=== PATIENT | female | born 1935 | race Caucasian/White ===

== ENCOUNTER → 2017-03-15 | Outpatient (CLI) | payer MEDICARE, BC | END | disposition home or self-care (01) | LOC: PCVCCLINIC 10:45 | PROVIDERS: ATTEND Internal Medicine Cardiovascular Disease | DX: I10 Essential (primary) hypertension (principal); I47.1 Supraventricular tachycardia; I48.0 Paroxysmal atrial fibrillation; E78.00 Pure hypercholesterolemia, unspecified; Z82.49 Family history of ischemic heart disease and other diseases of the circulatory system; Z87.891 Personal history of nicotine dependence; Z79.82 Long term (current) use of aspirin; Z79.899 Other long term (current) drug therapy | CPT/HCPCS: 80061; 93005; G0463 ==

== ENCOUNTER → 2018-03-14 | Outpatient (CLI) | payer MEDICARE, BC | END | disposition home or self-care (01) | LOC: PCVCCLINIC 10:53 | PROVIDERS: ATTEND Internal Medicine Cardiovascular Disease | DX: I48.0 Paroxysmal atrial fibrillation (principal); R00.0 Tachycardia, unspecified; E78.00 Pure hypercholesterolemia, unspecified; I10 Essential (primary) hypertension; Z87.891 Personal history of nicotine dependence | CPT/HCPCS: 36415; 80061; 93005; G0463 ==

== ENCOUNTER → 2018-03-28 | Outpatient (CLI) | payer BC, MEDICARE, OTHER ==
[~2018-03-28] MED LIST: REGADENOSON 0.4 MG/5 ML DISP.SYRIN. IV ONE
--- NOTE | 2018-03-28 14:54 | PCVCIMAG ---
APPROVED REPORT Imaging Protocol: Rest Tc-99m/Stress Tc-99m 1 day Study performed: 03/28/2018 12:14:07 Indication: Afib Patient Location: Out-Patient Stress Nurse: Sonam Vera RN, RIP Chatterjee Tech:Desmond MirandaCIELO Ht: 5 ft 3 in Wt: 140 lbs BSA: 1.66 m2 HR: 82 bpm BP: 200/94 mmHg BMI: 24.7 Rhythm: Afib Medical History Medical History: Age, Hyperlipidemia, HTN, Afib, Former Smoker Medications: Irbesartan-HCTZ, Metoprolol, Xarelto, Simvastatin Allergies: No known drug allergies Pretest Chest Pain Characteristics: No chest pain Exercise History: Physically active Resting Data Rest SPECT myocardial perfusion imaging was performed in supine position 45 minutes following the intravenous injection of 12 mCi of Tc-99m Sestamibi. Time of rest injection: 1130 Date: 03/28/2018 Administration Route: IV Administration Site: Right AC Pharmacologic Stress Pharmacologic stress test was performed by injecting Regadenoson 0.4 mg IV push over 10-15 seconds immediately followed by the intravenous injection of 36 mCi of Tc-99m Sestamibi. Time of stress injection: 1245 Date: 03/28/2018 Administration Route: IV Administration Site: Right AC Gated Stress SPECT was performed 45 minutes after stress injection. The images were gated to evaluate regional wall motion and calculate left ventricular ejection fraction. Stress Test Details Stress Test: Pharmacologic stress testing performed using 0.4 mg of regadenoson per 5 mL given IV over 10 seconds. Reason for pharmacologic stress test: Afib. HRMax Heart Rate (APMHR): 138 bpm Resting HR: 82 bpmTarget HR (85% APMHR): 117 bpm Max HR Achieved: 111 bpm % of APMHR: 80 Recovery HR: 96 bpm BP Resting BP: 200/94 mmHg Max BP: 152/74 mmHg Recovery BP: 174/75 mmHg ECG Resting ECG: Atrial Fibrillation Stress ECG: Atrial Fibrillation Arrhythmia: PVC's Recovery ECG: Atrial Fibrillation Clinical Reason for Termination: Completed protocol Stress Symptoms: Lightheaded Exercise duration: min 55 sec Symptoms resolved with caffeine. Stress ECG Conclusion ECG: Non-ischemic Study Quality Study: Good Study Data Post stress, the left ventricular ejection was 81%.. SSS: 0 SRS: 0 SDS: 0 TID = 0.91. Perfusion No evidence of stress induced ischemia or prior myocardial infarction. Wall Motion Normal left ventricular size and function with no regional wall motion abnormalities. Nuclear Conclusion No evidence of stress induced ischemia or prior myocardial infarction. Normal left ventricular size and function with no regional wall motion abnormalities. Post stress, the left ventricular ejection was 81%. No prior study available for comparison. Interpreted by: Javad Mart MD Electronically Approved: 03/28/2018 14:22:28 <Conclusion> ECG: Non-ischemic
--- NOTE | 2018-03-28 14:57 | PCVCIMAG ---
APPROVED REPORT Study performed: 03/28/2018 11:14:01 EXAM: Comprehensive 2D, Doppler, and color-flow Echocardiogram Patient Location: Echo lab Room #: 2Status: routine BSA: 1.66 HR: 85 bpm Rhythm: Atrial Fibrillation Other Information Study Quality: Good Risk Factors: Cardiac Risk Factors: HTN, Hyperlipidemia Indications Atrial Fibrillation Tachycardia Hx PAF 2D Dimensions IVSd: 6.78 (7-11mm)LVOT Diam: 20.58 (18-24mm) LVDd: 40.08 mm PWd: 8.01 (7-11mm)Ascending Ao: 30.54 (22-36mm) LVDs: 17.04 (25-40mm) Left Atrium: 38.65 (27-40mm) Aortic Root: 25.89 mm LV Single Plane 4CH: 50.61 % LV Single Plane 2CH: 65.42 % Biplane EF: 62.0 % Volumes Left Atrial Volume (Systole) Single Plane 4CH: 83.62 mLSingle Plane 2CH: 66.11 mL Biplane LA Volume: 75.00 mLLA ESV Index: 45.00 mL/m2 Aortic Valve AoV Peak Juan.: 1.01 m/s AO Peak Gr.: 4.30 mmHgLVOT Max P.57 mmHg LVOT Max V: 0.61 m/s MAZIN Vmax: 2.01 cm2 Mitral Valve MV E Max Juan.: 0.86 m/s MV PHT: 41.82 ms MVA (PHT): 5.26 cm2 TDI E/Lateral E': 5.73E/Medial E': 9.56 Medial E' Juan.: 0.09 m/s Lateral E' Juan.: 0.15 m/s Pulmonary Valve PV Peak Juan.: 0.85 m/sPV Peak Gr.: 2.86 mmHg Pulmonary Vein P Vein S: 0.30 m/sP Vein A: 0.29 m/s P Vein D: 0.74 m/sP Vein A Dur.: 65.7 msec P Vein S/D Ratio: 0.41 Tricuspid Valve TR Peak Juan.: 2.88 m/s TR Peak Gr.: 33.20 mmHg TV Vmax: 1.05 m/s Left Ventricle The left ventricle is normal size. There is normal LV segmental wall motion. There is normal left ventricular wall thickness. Left ventricular systolic function is normal. The left ventricular ejection fraction is within the normal range. LVEF is 60-65%. This study is not technically sufficient to allow evaluation of the LV diastolic function due to atrial fibrillation. Right Ventricle The right ventricle is normal size. The right ventricular systolic function is normal. Atria Left atrium is moderately dilated. Right atrium is severely dilated. Aortic Valve Aortic valve is trileaflet. No aortic regurgitation is present. There is no aortic valvular stenosis. Mitral Valve The mitral valve leaflet tips appear myxomatous, There is normal leaflet movement Moderate to severe mitral regurgitation No evidence of mitral valve stenosis. Tricuspid Valve The tricuspid valve is normal in structure. Severe tricuspid regurgitation.PA press 40mmhg Pulmonic Valve The pulmonary valve is normal in structure. There is no pulmonic valvular regurgitation. Great Vessels The aortic root is normal in size. The ascending aorta is normal in size. IVC is normal in size and collapses >50% with inspiration. Pericardium There is no pericardial effusion. There is no pleural effusion. <Conclusion> The left ventricle is normal size. LVEF is 60-65%. This study is not technically sufficient to allow evaluation of the LV diastolic function due to atrial fibrillation. The right ventricle is normal size. Left atrium is moderately dilated. Right atrium is severely dilated. Aortic valve is trileaflet. Moderate to severe mitral regurgitation The mitral valve leaflet tips appear myxomatous, There is normal leaflet movement Severe tricuspid regurgitation.PA press 40mmhg The aortic root is normal in size. There is no pericardial effusion.
== END | disposition home or self-care (01) ==
LOC: PCVCIMAG 11:28
PROVIDERS: ATTEND Internal Medicine Cardiovascular Disease
DX: I07.1 Rheumatic tricuspid insufficiency (principal); I10 Essential (primary) hypertension; I48.0 Paroxysmal atrial fibrillation; I47.1 Supraventricular tachycardia; E78.00 Pure hypercholesterolemia, unspecified; Z87.891 Personal history of nicotine dependence
CPT/HCPCS: 78452; 93017; 93306; A9500; J2785

== ENCOUNTER → 2018-09-27 | Outpatient (CLI) | payer OTHER | END | disposition home or self-care (01) | LOC: PCVCCLINIC 14:00 | PROVIDERS: ATTEND Internal Medicine Cardiovascular Disease | DX: I48.0 Paroxysmal atrial fibrillation (principal); I10 Essential (primary) hypertension; E78.00 Pure hypercholesterolemia, unspecified | CPT/HCPCS: 36415; 80061; 93005; G0463 ==